=== PATIENT | female | born 1995 | race Caucasian/White ===

== ENCOUNTER → 2017-06-06 | Outpatient (CLI) | payer BC ==
--- NOTE | 2017-06-06 12:13 | RAD ---
Pelvis, single view, 06/06/2017: History: Back and hip pain No fracture or destructive bony lesion is seen. The hip joints are well-maintained. The soft tissues are unremarkable. IMPRESSION: No significant abnormality is detected. Lumbar spine, 3 views, 06/06/2017: The lumbar vertebral heights are well-maintained. Intervertebral disc spaces are well preserved. No fracture or destructive bony lesion is seen. There is a moderate amount of stool in the colon. IMPRESSION: No significant lumbar spine abnormality is detected.
== END | disposition home or self-care (01) ==
LOC: DXRADRC 10:18
PROVIDERS: ATTEND Physician Assistant
DX: M54.5 Low back pain (principal); M25.551 Pain in right hip; R10.2 Pelvic and perineal pain
CPT/HCPCS: 72100; 76010